=== PATIENT | female | born 1945 | race Caucasian/White ===

== ENCOUNTER → 2020-03-26 10:31 | Outpatient (BNVA) | payer MEDICARE, MEDICAID, SELFPAY | PROVIDERS: Family Provider Family Medicine; PCP Family Medicine; Visit Provider Internal Medicine Cardiovascular Disease | DX: I83.813 Varicose veins of bilateral lower extremities with pain (principal); I50.32 Chronic diastolic (congestive) heart failure; I48.19 Other persistent atrial fibrillation; Z95.0 Presence of cardiac pacemaker; I10 Essential (primary) hypertension; E11.65 Type 2 diabetes mellitus with hyperglycemia; G47.33 Obstructive sleep apnea (adult) (pediatric); I42.2 Other hypertrophic cardiomyopathy; I63.49 Cerebral infarction due to embolism of other cerebral artery | CPT/HCPCS: 80048; 80162; 83880 ==

== ENCOUNTER 2020-06-27 13:09 | Outpatient (CLI) | payer MEDICARE, MEDICAID, SELFPAY ==
--- NOTE | 2020-06-27 13:15 | MM_ITS ---
WS: [id number] BILATERAL DIGITAL SCREENING MAMMOGRAPHY WITH CAD CLINICAL INFORMATION: SCREENING HISTORY: Screening mammogram. No current complaints. COMPARISON: November 08, 2018 TECHNIQUE: Bilateral CC and MLO views. FINDINGS: The breasts are composed of heterogeneous fibroglandular density tissue, which can limit the detectio n of small underlying mass lesions. No suspicious mass, asymmetry, calcifications, or architectural d istortion. No evidence of malignancy. Lucent centered calcifications. Vascular calcification. MM/[place] [id number] IMPRESSION: BI-RADS: 2-Benign FOLLOW UP: 1 Year Follow-up Recommend return to annual screening mammography.
--- NOTE | 2020-06-27 14:27 | XR_ITS ---
WS: [id number] DEXA (DUAL ENERGY X-RAY ABSORPTIOMETRY) Bone mineral density was performed using a Scalix machine. HISTORY: POST MENOPAUSAL COMPARISON: 10/12/2017 Lumbar spine BMD (L1-L4): 0.962 g/cm2 T score: -1.8 Z score: -1.3 Total hip BMD: Left: 1.267 g/cm2. T score: 2.1 Z score: 2.9 Right: 0.844 g/cm2. T score: -1.3 Z score: -0.5 10 year probability of a major osteoporotic fracture is 15%. Compared to the prior study from 10/12/2017. Lumbar spine bone mineral density has decrease by 2.5%. Bilateral hips bone mineral density has decreased by 3.1%. XR/XR DEXA axial skeleton* [id number] IMPRESSION: OSTEOPENIA based upon the WHO classification for females. Mild but significant decreased in bone mineral density since the prior study.
== END 2020-06-27 13:10 | disposition home or self-care (01) ==
LOC: RADSHAW 13:10
PROVIDERS: PCP Family Medicine; Visit Provider Family Medicine
DX: Z12.31 Encounter for screening mammogram for malignant neoplasm of breast (principal); Z78.0 Asymptomatic menopausal state; M85.89 Other specified disorders of bone density and structure, multiple sites
CPT/HCPCS: 77067; 77080

== ENCOUNTER → 2020-09-26 12:24 | Outpatient (BNVA) | payer MEDICARE, MEDICAID, SELFPAY | PROVIDERS: PCP Family Medicine; Visit Provider Internal Medicine Cardiovascular Disease | DX: I50.32 Chronic diastolic (congestive) heart failure (principal); I50.33 Acute on chronic diastolic (congestive) heart failure; I83.813 Varicose veins of bilateral lower extremities with pain; R06.02 Shortness of breath; Z95.0 Presence of cardiac pacemaker; I11.0 Hypertensive heart disease with heart failure; I42.2 Other hypertrophic cardiomyopathy | CPT/HCPCS: 80048; 80162; 83880 ==

== ENCOUNTER 2021-07-02 09:58 | Outpatient (CLI) | payer MEDICARE, MEDICAID, SELFPAY ==
--- NOTE | 2021-07-02 10:10 | MM_ITS ---
WS: [id number] Bilateral screening 3D tomosynthesis digital mammogram, 07/02/2021 Clinical Data: SCREENING Comparison: 06/27/2020, 11/08/2018, 10/12/2017, 09/21/2016, 09/07/2014, 09/14/2012, 09/13/2008, 06/05/2003. Findings: The breast parenchymal pattern shows fibroglandular tissue. No spiculated masses or clustered calcifi cations are seen. There are no secondary signs of carcinoma. There are mole markers on both breasts. There is a pacemaker generator in the left axilla. MM/[place] [id number] Impression: 1. Negative bilateral mammogram unchanged. 2. Recommend annual screening mammograms. BIRADS: 1-Negative FOLLOW UP: 1 Year Follow-up The CAD gas meter checker was used.
== END 2021-07-02 09:59 | disposition home or self-care (01) ==
LOC: RAD 10:03
PROVIDERS: PCP Family Medicine; Visit Provider Family Medicine
DX: Z12.39 Encounter for other screening for malignant neoplasm of breast (principal)
CPT/HCPCS: 77063; 77067

== ENCOUNTER → 2021-07-15 10:20 | Outpatient (BNVA) | payer MEDICARE, MEDICAID, SELFPAY | PROVIDERS: PCP Family Medicine; Referring Provider Family Medicine; Visit Provider Surgery | DX: I48.19 Other persistent atrial fibrillation (principal); K63.5 Polyp of colon | CPT/HCPCS: 99204 ==

== ENCOUNTER → 2021-07-21 13:55 | Outpatient (BNVA) | payer MEDICARE, MEDICAID, SELFPAY | PROVIDERS: PCP Family Medicine; Visit Provider Internal Medicine | DX: Z45.010 Encounter for checking and testing of cardiac pacemaker pulse generator [battery] (principal) | CPT/HCPCS: 93279 ==

== ENCOUNTER → 2021-08-08 08:14 | Outpatient (BNVA) | payer MEDICARE, MEDICAID, SELFPAY | PROVIDERS: PCP Family Medicine; Visit Provider Internal Medicine Cardiovascular Disease | DX: Z45.010 Encounter for checking and testing of cardiac pacemaker pulse generator [battery] (principal) | CPT/HCPCS: 93279 ==

== ENCOUNTER → 2021-08-22 08:18 | Outpatient (BNVA) | payer MEDICARE, MEDICAID, SELFPAY | PROVIDERS: PCP Family Medicine; Visit Provider Internal Medicine Cardiovascular Disease | DX: Z45.010 Encounter for checking and testing of cardiac pacemaker pulse generator [battery] (principal) | CPT/HCPCS: 93279 ==

== ENCOUNTER → 2021-08-25 09:44 | Outpatient (BNVA) | payer MEDICARE, MEDICAID, SELFPAY | PROVIDERS: PCP Family Medicine; Visit Provider Internal Medicine Cardiovascular Disease | DX: Z95.0 Presence of cardiac pacemaker (principal); R53.83 Other fatigue; I48.19 Other persistent atrial fibrillation; I95.9 Hypotension, unspecified; E11.65 Type 2 diabetes mellitus with hyperglycemia; G47.33 Obstructive sleep apnea (adult) (pediatric); I11.0 Hypertensive heart disease with heart failure; I50.32 Chronic diastolic (congestive) heart failure; I42.2 Other hypertrophic cardiomyopathy; Z79.01 Long term (current) use of anticoagulants; Z86.73 Personal history of transient ischemic attack (TIA), and cerebral infarction without residual deficits; Z79.84 Long term (current) use of oral hypoglycemic drugs | CPT/HCPCS: 80048; 83880; 85025; 85610; 86850; 86900; 99214 ==

== ENCOUNTER 2021-08-28 05:47 | Outpatient (CLI) | payer MEDICARE, MEDICAID, SELFPAY ==
[2021-08-28] VITALS (8 sets, daily range): BP systolic 115–126; BP diastolic 63–73; PULSE 59–72; RESP 16–20; TEMP 36.3–36.9; O2SAT 93–96; BMI 40.8
--- NOTE | 2021-08-28 07:18 | W.PM.OPSUD ---
Surgery/Procedure H&P Update DATE OF PROCEDURE: August 28, 2021 DATE H&P PERFORMED: 08/25/21 H&P UPDATE INFORMATION: I have reviewed H&P completed within last 30 days, I have examined patient prior to procedure and No changes to prior documentation PREOP DIAGNOSIS: pace maker ADAMARIS PRIMARY INDICATION FOR PROCEDURE: Pacemaker ADAMARIS PLANNED PROCEDURE: Operation Date: 08/28/21 07:00 Proposed Procedures p Pacemaker Generator Change(Left) - Mohan Camp MD PATIENT REASSESSED PRIOR TO SEDATION, WITH NO CHANGE NOTED: Yes PHYSICAL EXAM: alert, oriented x 3, clear to auscultation bilaterally and regular rate & rhythm AIRWAY EVAL/ANESTHESIA PLAN: normal airway, see other exam findings, ASA III, Monitored Anesthesia, Local Anesthesia, Risks, benefits & alternatives of sedation and/or procedure discussed and Patient agrees to continue as planned
--- NOTE | 2021-08-28 09:16 | P.OP_ITS ---
Operative Report Date of procedure: August 28, 2021 Pre-op diagnosis: Preop Diagnosis pace makelanre BAILON Procedure: PROCEDURE: PACEMAKER REVISION PREOPERATIVE DIAGNOSIS: Pacemaker elective replacement indication. POSTOPERATIVE DIAGNOSIS: Pacemaker elective replacement indication. ESTIMATED BLOOD LOSS: Around none COMPLICATIONS: None. BRIEF HISTORY: The patient is 76-year-old white female who had a permanent pacemaker implantation for atrial fibrillation/symptomatic bradycardia. The patient was found to have elective replacement indication, during routine office followup evaluation. For further management of patient's condition for the symptomatic bradycardia, the patient required a pacemaker revision. The procedure was explained to the patient and her family in detail with the risks and benefits. The risks of bleeding, hematoma, vascular injury, infection and other concomitant complications were explained in detail, which the patient understood well and consented to proceed. PROCEDURES PERFORMED: 1. Explantation of the old pacemaker generator. 2. Implantation of the new generator. The patient brought to the [facility]. The left side of the neck and the subclavian area were cleaned and draped in a sterile fashion. 1% Xylocaine was used for local anesthetic agent. A 2 inch long incision was made just below the previous pacemaker scar. By sharp and blunt dissection, the pacemaker pocket was accessed. The old generator was delivered from the pocket. The generator was detached from the lead. The new Medtronic generator was attached to the lead. The pacemaker pocket was copiously irrigated with vancomycin solution. Complete hemostasis was achieved. The lead was positioned behind the generator and the generator was attached to the pectoralis fascia by suturing with 0 Surgilon. Sponge counts were confirmed. The pacemaker pocket was closed in layers. Skin was approximated using 4-0 Vicryl. EXPLANTED DEVICE: Pacemaker Generator: Brand: Sensia. Model number: [id number]. Serial number: [id number] Date of implant: 12/02/2012 IMPLANTED DEVICES: Ventricular Lead: Date of implantation: 12/02/2012 Model number: 5076/[id number] Serial number: [id number] Make: Medtronic. Implanted Generator: Date of implantation : 08/28/2021 Brand: Isatu XT SR MRI Surescan. Model number: [id number] Serial number: [id number] Make: Medtronic Stimulation Threshold: The ventricular sensing was 10.9 millivolts. Lead impedance was 456 and the pacing threshold was 1.0 volts at 0.4 milliseconds. The pacemaker was set for VVIR mode with an upper rate of 130 and a lower rate of 60 EEE A pressure dressing was applied over the pacemaker site. The patient was transferred back to medical floor in stable condition. Sponge counts were correct.
[2021-08-28 11:24] LABS: Glucose Point of Care 139 mg/dL (70-110)
[2021-08-28] MEDS: potassium chloride ER 20 mEq Tablet PO (17:13)
[2021-08-28] MEDS: metoprolol tartrate 50 mg Tablet 100 MG PO (17:13)
[2021-08-28] MEDS: omega-3 fatty acids 1,000 mg Capsule 1000 MG PO (17:13)
[2021-08-28] MEDS: vancomycin 1,000 MG in sodium chloride 0.9% 250 ML 250 MG IV (17:14)
[2021-08-28] MEDS: sodium chloride 0.9% 1,000 ML 75 ML IV (17:24)
[2021-08-28 17:54] LABS: Glucose Point of Care 235 mg/dL (70-110)
[2021-08-28 20:35] LABS: Glucose Point of Care 213 mg/dL (70-110)
[2021-08-28] MEDS: gabapentin 100 mg Capsule 200 MG PO (21:24)
[2021-08-29] VITALS (7 sets, daily range): BP systolic 110–135; BP diastolic 64–77; PULSE 56–72; RESP 14–18; TEMP 36.6–37.1; O2SAT 90–96
--- NOTE | 2021-08-29 06:00 | ECG_ITS ---
[facility] Test Date: 2021-08-29 Pat Name: Gillian Cantor Department: Room: 278 Gender: Female Tour Agent: : 1945 Requested By: Mohan Camp Order Number: [id number] Bin MD: Sandra Salvador M.D. Measurements Intervals [place] Rate: 70 P: WI: QRS: -77 QRSD: 176 T: 87 QT: 459 QTc: 496 Interpretive Statements ELECTRONIC VENTRICULAR PACEMAKER ABNORMAL RHYTHM ECG Compared to ECG 10/22/2016 13:47:38 No significant changes Electronically Signed On 08-29-2021 23:11:43 CDT by Sandra Salvador M.D. [id number]
[2021-08-29 06:19] LABS: Glucose Point of Care 145 mg/dL (70-110)
[2021-08-29] MEDS: sodium chloride 0.9% 1,000 ML 75 ML IV (06:51)
[2021-08-29] MEDS: isosorbide mononitrate ER 60 mg Tablet 120 MG PO (09:21)
[2021-08-29] MEDS: atorvastatin 40 mg Tablet 20 MG PO (09:21)
[2021-08-29] MEDS: omega-3 fatty acids 1,000 mg Capsule 1000 MG PO (09:22)
[2021-08-29] MEDS: citalopram 20 mg Tablet 40 MG PO (09:22)
[2021-08-29] MEDS: cholecalciferol (vitamin D3) 1,000 unit Tablet 1000 UNIT PO (09:22)
[2021-08-29] MEDS: calcium carbonate 500 mg Chew Tablet PO (09:23)
[2021-08-29] MEDS: potassium chloride ER 20 mEq Tablet PO (09:23)
[2021-08-29] MEDS: aspirin 81 mg EC Tablet PO (09:23)
[2021-08-29] MEDS: metoprolol tartrate 50 mg Tablet 100 MG PO (09:30)
[2021-08-29] MEDS: digoxin 125 mcg Tablet PO (09:30)
[2021-08-29] MEDS: losartan 50 mg Tablet 100 MG PO (09:30)
--- NOTE | 2021-08-29 13:00 | PC.NURSE ---
Patient requsted a sling for home use. Dr. Camp notified. Verbal order given to obtain from OT.
== END 2021-08-29 14:30 | disposition home or self-care (01) ==
LOC: CCL 05:49 → MEDSURG 09:29
PROVIDERS: PCP Family Medicine; Visit Provider Internal Medicine Cardiovascular Disease
DX: Z45.010 Encounter for checking and testing of cardiac pacemaker pulse generator [battery] (principal); I48.91 Unspecified atrial fibrillation; E11.9 Type 2 diabetes mellitus without complications; I11.0 Hypertensive heart disease with heart failure; I50.9 Heart failure, unspecified; G47.30 Sleep apnea, unspecified; I63.9 Cerebral infarction, unspecified; Z79.82 Long term (current) use of aspirin; E78.2 Mixed hyperlipidemia
CPT/HCPCS: 33212; 36415; 36416; 82962; 93005; 94640; 96360; 97165; 99152; 99153; C1769; C1786; J2250; J3010; J3370; J7030; J7050

== ENCOUNTER → 2021-09-11 10:09 | Outpatient (BNVA) | payer MEDICARE, MEDICAID, SELFPAY | PROVIDERS: PCP Family Medicine; Visit Provider Nurse Practitioner Family | DX: Z95.0 Presence of cardiac pacemaker (principal) | CPT/HCPCS: 99213; 99214 ==

== ENCOUNTER → 2021-10-31 10:51 | Outpatient (BNVA) | payer MEDICARE, MEDICAID, SELFPAY | PROVIDERS: PCP Family Medicine; Visit Provider Internal Medicine Cardiovascular Disease | DX: I11.0 Hypertensive heart disease with heart failure (principal); I50.32 Chronic diastolic (congestive) heart failure; Z95.0 Presence of cardiac pacemaker; I48.19 Other persistent atrial fibrillation; Z79.01 Long term (current) use of anticoagulants; I83.813 Varicose veins of bilateral lower extremities with pain; E11.65 Type 2 diabetes mellitus with hyperglycemia; Z79.84 Long term (current) use of oral hypoglycemic drugs; G47.33 Obstructive sleep apnea (adult) (pediatric); I42.2 Other hypertrophic cardiomyopathy; Z86.73 Personal history of transient ischemic attack (TIA), and cerebral infarction without residual deficits | CPT/HCPCS: 99213; 99214 ==

== ENCOUNTER → 2022-04-23 11:03 | Outpatient (BNVA) | payer MEDICARE, MEDICAID, SELFPAY | PROVIDERS: PCP Family Medicine; Visit Provider Internal Medicine Cardiovascular Disease | DX: I11.0 Hypertensive heart disease with heart failure (principal); I50.32 Chronic diastolic (congestive) heart failure; I42.2 Other hypertrophic cardiomyopathy; I48.19 Other persistent atrial fibrillation; Z79.01 Long term (current) use of anticoagulants; Z95.0 Presence of cardiac pacemaker; E11.65 Type 2 diabetes mellitus with hyperglycemia | CPT/HCPCS: 80048; 80162; 83880; 99214 ==

== ENCOUNTER 2022-07-16 13:21 | Outpatient (CLI) | payer MEDICARE, MEDICAID, SELFPAY ==
--- NOTE | 2022-07-16 13:33 | USCV_ITS ---
Gillian Cantor Age: 77 Gender: F : 1945 Exam Date: 07/16/2022 14:04 Ordering Phys: Marie Payton MD Technologist: Tonio Siddiqui Exam Location: [facility] – [place] Indication: dyspnea, hypoxia BP: 133 / 81 HR: 63 Rhythm: Sinus Technical Quality: Adequate MEASUREMENTS (Male / Female) Normal Values 2D ECHO LVOT Diameter 2.0 cm LV Ejection Fraction MOD 2C 57.6 % LV Ejection Fraction 2C AL 56.3 % LA Diameter 3.6 cm LA Width 3.4 cm LA Height 5.3 cm RA Width 3.4 cm RA Height 5.4 cm Aorta at Sinotubular Diameter 2.3 cm IVC Diameter 2.0 cm M-MODE Aortic Annulus Diameter 2.3 cm LA Ao Ratio MM 1.6 MV E Point Septal Separation 1.1 cm DOPPLER AV Peak Velocity 182.0 cm/s LVOT Peak Velocity 76.0 cm/s AV Area Cont Eq vti 1.5 cm squared AV Area Cont Eq pk 1.3 cm squared MV Peak Velocity 132.0 cm/s MV Area PHT 5.4 cm squared Mitral E to A Ratio 5.0 MV E' Velocity 57.0 cm/s Mitral E to LV E' Lateral Ratio 16.7 TR Peak Velocity 408.0 cm/s TR Peak Gradient 66.6 mmHg TR Mean Velocity 298.2 cm/s TR Mean Gradient 38.7 mmHg TR Velocity Time Integral 126.0 cm Right Atrial Pressure 8.0 mmHg Pulmonary Artery Systolic Pressu 74.6 mmHg PV Peak Velocity 119.0 cm/s RV Acceleration Time 0.1 s RV Ejection Time 0.3 s RV AcT/ET 0.3 FINDINGS Left Ventricle Normal left ventricular size and systolic function, EF 56 %. Abnormal septal motion consistent with pacemaker. Right Ventricle The right ventricle is normal in size and function. Catheter/pacemaker wire in the right ventricular cavity. Right Atrium Mildly increased right atrial size. Left Atrium Mildly increased left atrial size. Mitral Valve Thickened mitral valve. Moderate mitral valve regurgitation. Aortic Valve [id number]-[id number] aortic valve regurgitation. Tricuspid Valve Moderate tricuspid valve regurgitation. No tricuspid valve regurgitation. Pulmonic Valve Pulmonic valve not well visualized. Pericardium No pericardial effusion. Aorta Normal aortic annulus size. IVC The inferior vena cava appears normal. CONCLUSIONS Normal left ventricular size and systolic function, EF 56 %. Abnormal septal motion consistent with pacemaker. Mild to moderate biatrial enlargementThickened mitral valve. Moderate mitral valve regurgitation. Wfwl-yi-fxidsdar aortic valve regurgitation. Moderate tricuspid valve regurgitation. Estimated pulmonary artery peak systolic pressure 75 mmHg There is no pericardial effusion. There are no intracardiac masses. Compared to the study from 11/10/2016, there may not be a significant change except for the worsening of the pulmonary hypertension Dr Mohan Camp MD [facility] (Electronically Signed) Final Date: 16 Jul 2022 17:08 S
== END 2022-07-16 13:22 | disposition home or self-care (01) ==
LOC: RAD 13:25
PROVIDERS: PCP Family Medicine; Visit Provider Family Medicine
DX: I05.9 Rheumatic mitral valve disease, unspecified (principal); I35.1 Nonrheumatic aortic (valve) insufficiency; I07.1 Rheumatic tricuspid insufficiency; I27.20 Pulmonary hypertension, unspecified; R06.00 Dyspnea, unspecified; R09.02 Hypoxemia
CPT/HCPCS: 93306

== ENCOUNTER 2022-07-29 13:17 | Outpatient (CLI) | payer MEDICARE, MEDICAID, SELFPAY ==
[2022-07-29 14:13] VITALS: PULSE 75; RESP 18; O2SAT 95
[2022-07-29] MEDS: albuterol 2.5 mg/3 mL Neb INHALATION (14:13)
[2022-07-29 14:18] VITALS: PULSE 65
== END 2022-07-29 13:18 | disposition home or self-care (01) ==
LOC: RT 13:21
PROVIDERS: PCP Family Medicine; Visit Provider Family Medicine
DX: R06.00 Dyspnea, unspecified (principal); R09.02 Hypoxemia
CPT/HCPCS: 94060; 94726; 94729; J7613

== ENCOUNTER → 2022-10-12 14:10 | Outpatient (BNVA) | payer MEDICARE, MEDICAID, SELFPAY | PROVIDERS: PCP Family Medicine; Visit Provider Nurse Practitioner Family | DX: I11.0 Hypertensive heart disease with heart failure (principal); I50.32 Chronic diastolic (congestive) heart failure; I48.19 Other persistent atrial fibrillation; Z95.0 Presence of cardiac pacemaker; Z79.01 Long term (current) use of anticoagulants | CPT/HCPCS: 99214 ==

== ENCOUNTER 2023-02-22 14:09 | Outpatient (CLI) | payer MEDICARE, MEDICAID, SELFPAY ==
--- NOTE | 2023-02-22 14:20 | MM_ITS ---
WS: [id number] Bilateral screening 3D tomosynthesis digital mammogram, 02/22/2023 Clinical Data: SCREENING Comparison: 07/02/2021, 06/26/2020, 11/08/2018, 10/12/2017, 09/21/2016, 09/07/2014, 09/14/2012, 09/13/2008, 2003. Findings: The breast parenchymal pattern shows fibroglandular tissue. No spiculated masses or clustered calcifi cations are seen. There are no secondary signs of carcinoma. Impression: 1. Negative bilateral mammogram unchanged. 2. Recommend annual screening mammograms. MM/[place] [id number] BIRADS: 1-Negative FOLLOW UP: 1 Year Follow-up The CAD credit checker was used.
== END 2023-02-22 14:10 | disposition home or self-care (01) ==
LOC: RAD 14:09
PROVIDERS: PCP Family Medicine; Visit Provider Family Medicine
DX: Z12.31 Encounter for screening mammogram for malignant neoplasm of breast (principal)
CPT/HCPCS: 77063; 77067

== ENCOUNTER → 2023-06-22 12:03 | Outpatient (BNVA) | payer MEDICARE, MEDICAID, SELFPAY | PROVIDERS: PCP Family Medicine; Visit Provider Internal Medicine Cardiovascular Disease | DX: I11.0 Hypertensive heart disease with heart failure (principal); I50.32 Chronic diastolic (congestive) heart failure; I42.2 Other hypertrophic cardiomyopathy; I83.813 Varicose veins of bilateral lower extremities with pain; I48.19 Other persistent atrial fibrillation; Z95.0 Presence of cardiac pacemaker; Z79.01 Long term (current) use of anticoagulants; G47.33 Obstructive sleep apnea (adult) (pediatric); R53.83 Other fatigue; Z86.73 Personal history of transient ischemic attack (TIA), and cerebral infarction without residual deficits | CPT/HCPCS: 99214 ==

== ENCOUNTER 2023-07-20 09:06 | Outpatient (CLI) | payer MEDICARE, MEDICAID, SELFPAY ==
--- NOTE | 2023-07-20 09:37 | NM_ITS ---
WS: [id number] NUCLEAR MEDICINE BONE SCAN Radiopharmaceutical: 25.0 Tc-99m MDP mCi IV Injection site: Antecubital Postinjection imaging delay: 1 hr CLINICAL INFORMATION: ABNORMAL RIGHT HIP XRAY, RULE OUT PAGETS DISEASE COMPARISON: No recent radiographs or hip x-ray available. Renal stone CT 2017. FINDINGS: Bone lesions: Focal increased uptake in the lower lumbar spine approximately L3 or L4 compatible with recent acute compression. Slight patchy increased uptake in the LEFT hip. Mild increased uptake in the LEFT proximal femur Minimal increased uptake in the RIGHT greater trochanter posteriorly Soft tissue contours: Normal Kidneys: Normal. Other findings: Degenerative type uptake in the AC joints and both knees and ankles NM/NM bone scan whole body* [id number] IMPRESSION: 1. Focal increased uptake in the lower lumbar spine approximately L3 or L4 com patible with recent compression fracture. This can be further evaluated with MR I or CT. 2. Mild increased uptake in the LEFT hip corresponds to the suspected chronic Paget's disease on the prior CT from 2017. Mild increased uptake in the LEFT pr oximal femoral shaft may also be due to Paget's disease. Recommend correlation with radiographs. 3. Minimal nonspecific increased uptake in the RIGHT greater trochanter disk operator iorly. Recommend further evaluation with CT or correlation prior outside radiog raphs
== END 2023-07-20 09:07 | disposition home or self-care (01) ==
LOC: RAD 09:07
PROVIDERS: PCP Family Medicine; Visit Provider Family Medicine
DX: M88.9 Osteitis deformans of unspecified bone (principal); R93.7 Abnormal findings on diagnostic imaging of other parts of musculoskeletal system
CPT/HCPCS: 78306; A9561

== ENCOUNTER 2023-10-11 13:02 | Outpatient (CLI) | payer MEDICARE, MEDICAID, SELFPAY ==
--- NOTE | 2023-10-11 13:07 | XR_ITS ---
WS: [id number] SCREENING DEXA SCAN [place]ze CLINICAL INFORMATION: ASYMPTOMATIC MENOPAUSAL STATE COMPARISON: 2020 FINDINGS: The L1-L4 bone mineral density measures 0.975 g/cm2. This corresponds to a T score score of -1.7 and Z score of -0.7. Left femoral neck bone mineral density measures 1.197 g/cm2. This corresponds to a T score of 1.5 and Z score of 2.8. Right femoral neck bone mineral density measures 0.779 g/cm2. This corresponds to a T score -1.8of an d Z score of -0.5. Mean femoral neck bone mineral density measures 0.988 g/cm2. This corresponds to a T score of -0.2 an d Z score of 1.1. XR/XR DEXA axial skeleton* [id number] IMPRESSION: Osteopenia lumbar spine. Osteopenia RIGHT femoral neck. Normal bone mineralizat ion LEFT femoral neck although likely spuriously inflated due to sclerosis Patient's FRAX calculated 10 year probability for major osteoporotic fracture i s 18.3% and osteoporotic hip fracture is 4.0%. Bone mineral density lumbar spine increased 1.4% Bone mineral density femoral necks decreased -6.4%
== END 2023-10-11 13:03 | disposition home or self-care (01) ==
LOC: RAD 13:02
PROVIDERS: PCP Family Medicine; Visit Provider Family Medicine
DX: Z13.820 Encounter for screening for osteoporosis (principal); Z78.0 Asymptomatic menopausal state; M85.89 Other specified disorders of bone density and structure, multiple sites
CPT/HCPCS: 77080

== ENCOUNTER → 2023-12-21 14:05 | Outpatient (BNVA) | payer MEDICARE, MEDICAID, SELFPAY | PROVIDERS: PCP Family Medicine; Visit Provider Internal Medicine Cardiovascular Disease | DX: I42.2 Other hypertrophic cardiomyopathy (principal); I11.0 Hypertensive heart disease with heart failure; I50.32 Chronic diastolic (congestive) heart failure; I48.19 Other persistent atrial fibrillation; Z95.0 Presence of cardiac pacemaker; E11.65 Type 2 diabetes mellitus with hyperglycemia; G47.33 Obstructive sleep apnea (adult) (pediatric); Z86.73 Personal history of transient ischemic attack (TIA), and cerebral infarction without residual deficits; Z79.84 Long term (current) use of oral hypoglycemic drugs; Z79.01 Long term (current) use of anticoagulants; Z79.82 Long term (current) use of aspirin; R06.02 Shortness of breath | CPT/HCPCS: 36415; 80048; 83880; 99214 ==

== ENCOUNTER 2023-12-27 08:25 | Outpatient (CLI) | payer MEDICARE, MEDICAID, SELFPAY ==
--- NOTE | 2023-12-27 08:32 | USCV_ITS ---
Gillian Cantor Age: 78 Gender: F : 1945 Exam Date: 12/27/2023 08:41 Ordering Phys: Marie Payton MD Technologist: CT Exam Location: [facility] [place] Indication: BP: 125 / 81 HR: 58 Rhythm: Sinus Technical Quality: Adequate MEASUREMENTS (Male / Female) Normal Values 2D ECHO LVOT Diameter 2.0 cm LV Ejection Fraction MOD 4C 52.6 % LV Ejection Fraction MOD 2C 49.6 % LV Ejection Fraction 2C AL 50.7 % LA Diameter 3.7 cm RA Systolic Volume 4C AL 59.5 ml RA Systolic Volume 4C MOD 58.3 ml LA Sys Volume AL 68.8 cm cubed LA Sys Volume Index AL 33.3 cm cubed/m squared Aorta at Sinotubular Diameter 2.1 cm IVC Diameter 2.5 cm M-MODE LA Ao Ratio MM 2.0 AV Cusp Separation MM 1.9 cm DOPPLER AV Peak Velocity 191.0 cm/s LVOT Peak Velocity 95.0 cm/s AV Area Cont Eq vti 1.7 cm squared AV Area Cont Eq pk 1.6 cm squared MV Peak Velocity 131.0 cm/s MV Area PHT 3.6 cm squared Mitral E to A Ratio 0.0 TV Peak Velocity 336.5 cm/s TR Peak Velocity 350.0 cm/s TR Peak Gradient 49.0 mmHg TV Peak E Velocity 76.0 cm/s Right Atrial Pressure 3.0 mmHg Pulmonary Artery Systolic Pressu 52.0 mmHg PV Peak Velocity 127.5 cm/s FINDINGS Left Ventricle Moderately increased left ventricular cavity size. Mildly decreased left ventricular systolic function. Left ventricular ejection fraction is estimated at 45 to 50 %. In the presence of atrial fibrillation diastolic function cannot be assessed accurately. Right Ventricle Normal right ventricular size and systolic function. Moderate pulmonary hypertension, RVSP 52 mmHg. Catheter/pacemaker wire visualized in the right ventricle. Right Atrium Moderately increased right atrial size. Catheter/pacemaker wire in the right atrial cavity. Left Atrium Moderately increased left atrial size. Mitral Valve Moderately thickened mitral valve. No mitral valve stenosis. Aortic Valve Structurally normal aortic valve without significant sclerosis or stenosis. There is no aortic regurgitation. Tricuspid Valve Thickened tricuspid valve. No tricuspid valve stenosis. Moderate tricuspid valve regurgitation. Pulmonic Valve Structurally normal pulmonic valve without significant stenosis. There is no pulmonic regurgitation. Pericardium Normal pericardium without effusion. Aorta Normal ascending aorta dimension. IVC The inferior vena cava appears normal. CONCLUSIONS Moderately increased left ventricular cavity size. Mildly decreased left ventricular systolic function. Left ventricular ejection fraction is estimated at 45 to 50 %. In the presence of atrial fibrillation diastolic function cannot be assessed accurately. Normal right ventricular size and systolic function. Moderate pulmonary hypertension, RVSP 52 mmHg. Catheter/pacemaker wire visualized in the right ventricle. Moderately increased right atrial size. Catheter/pacemaker wire in the right atrial cavity. Moderately increased left atrial size. Moderately thickened mitral valve. No mitral valve stenosis. Thickened tricuspid valve. No tricuspid valve stenosis. Moderate tricuspid valve regurgitation. There is no pericardial effusion. Right atrial pressure is around 20 mm of mercury. Faustino Beth MD (Electronically Signed) Final Date: 27 December 2023 19:54 S
== END 2023-12-27 08:26 | disposition home or self-care (01) ==
PROVIDERS: PCP Family Medicine; Visit Provider Family Medicine
DX: I35.2 Nonrheumatic aortic (valve) stenosis with insufficiency (principal); I27.20 Pulmonary hypertension, unspecified; I34.81 Nonrheumatic mitral (valve) annulus calcification; I36.9 Nonrheumatic tricuspid valve disorder, unspecified; I36.1 Nonrheumatic tricuspid (valve) insufficiency; I50.9 Heart failure, unspecified; I51.7 Cardiomegaly; Z95.0 Presence of cardiac pacemaker
CPT/HCPCS: 93306

== ENCOUNTER → 2024-06-19 09:23 | Outpatient (BNVA) | payer MEDICARE, MEDICAID, SELFPAY | PROVIDERS: PCP Family Medicine; Visit Provider Nurse Practitioner Family | DX: I11.0 Hypertensive heart disease with heart failure (principal); I50.33 Acute on chronic diastolic (congestive) heart failure; I48.19 Other persistent atrial fibrillation; Z79.01 Long term (current) use of anticoagulants; Z79.82 Long term (current) use of aspirin; I42.2 Other hypertrophic cardiomyopathy; E78.5 Hyperlipidemia, unspecified; E11.9 Type 2 diabetes mellitus without complications; Z79.84 Long term (current) use of oral hypoglycemic drugs; Z95.0 Presence of cardiac pacemaker; Z86.73 Personal history of transient ischemic attack (TIA), and cerebral infarction without residual deficits | CPT/HCPCS: 99214 ==

== ENCOUNTER → 2024-06-21 09:35 | Outpatient (BNVA) | payer MEDICARE, MEDICAID, SELFPAY | PROVIDERS: PCP Family Medicine; Visit Provider Internal Medicine Cardiovascular Disease | DX: Z45.018 Encounter for adjustment and management of other part of cardiac pacemaker (principal) | CPT/HCPCS: 93296 ==

== ENCOUNTER → 2024-09-20 16:25 | Outpatient (BNVA) | payer MEDICARE, MEDICAID, SELFPAY | PROVIDERS: PCP Family Medicine; Visit Provider Internal Medicine Cardiovascular Disease | DX: Z45.018 Encounter for adjustment and management of other part of cardiac pacemaker (principal) | CPT/HCPCS: 93296 ==

== ENCOUNTER 2024-12-25 11:58 | Outpatient (CLI) | payer OTHER, MEDICAID, SELFPAY ==
[2024-12-25 13:08] LABS: NT Pro B Type Natriuretic Pept 1436 pg/mL (0-450)
== END 2024-12-25 11:59 | disposition home or self-care (01) ==
LOC: LAB 12:02
PROVIDERS: PCP Nurse Practitioner Family; Visit Provider Internal Medicine Cardiovascular Disease
DX: I11.0 Hypertensive heart disease with heart failure (principal); I50.9 Heart failure, unspecified; I48.91 Unspecified atrial fibrillation; Z79.01 Long term (current) use of anticoagulants; Z79.82 Long term (current) use of aspirin; I42.2 Other hypertrophic cardiomyopathy; E11.9 Type 2 diabetes mellitus without complications; Z79.84 Long term (current) use of oral hypoglycemic drugs; Z95.0 Presence of cardiac pacemaker; Z86.73 Personal history of transient ischemic attack (TIA), and cerebral infarction without residual deficits; R06.02 Shortness of breath
CPT/HCPCS: 36415; 83880; 99214